=== PATIENT | female | born 1990 | race African-American/Black ===

== ENCOUNTER 2017-01-29 16:34 | Emergency (ER) | payer MEDICAID ==
[~2017-01-29] VITALS: Ht 160 cm; Wt 46.3 kg
[2017-01-29 16:36] VITALS: BP 107/68
== END 2017-01-29 17:06 | disposition home or self-care (01) ==
LOC: ED 16:55
DX: S09.90XA Unspecified injury of head, initial encounter (principal); G44.209 Tension-type headache, unspecified, not intractable; W22.8XXA Striking against or struck by other objects, initial encounter; Y93.89 Activity, other specified; Y92.89 Other specified places as the place of occurrence of the external cause; Y99.8 Other external cause status
CPT/HCPCS: 99284